=== PATIENT | female | born 1960 | race Caucasian/White ===

== ENCOUNTER 2020-04-08 09:56 | Emergency (ER) | payer OTHER ==
[~2020-04-08 09:56] MED LIST: CARVEDILOL3.125 MG PO; CLARITIN10 MG PO; COZAAR 25MG TAB25 MG PO; ESOMEPRAZOLE MA40 MG PO; LEVOTHYROXINE88 MCG PO; LIBRAX CAPSULE1 EACH PO; PROBIOTIC1 EACH PO; TRAZODONE 150M150 MG PO
[2020-04-08 11:05] LABS: BASOPHIL 0.3 % (0-2); EOSINOPHIL 0 % (0-5); HCT 40.5 % (37.0-47.0); LYMPHOCYTE 40.7 % (15-48); MCH 32.3 pg (25.0-31.0); MCHC 34.6 g/dL (32.0-36.0); MCV 93.5 fL (78.0-100.0); MONOCYTE 4.5 % (0-12); NEUTROPHIL 54.2 % (41-80); NRBC 0; PLT 178 K/uL (150-400); RBC 4.33 M/uL (4.20-5.40); RDW 11.5 % (11.5-14.0); WBC 7.2 K/uL (4.0-10.5)
[2020-04-08 11:15] LABS: INR 1.01 (0.9-1.2); PROTHROMBIN TIME 12.6 SECONDS (11.4-13.6)
[2020-04-08 11:34] LABS: LACTIC ACID 0.9 mmol/L (0.4-1.9)
[2020-04-08 11:39] LABS: ALBUMIN 2.9 g/dL (3.4-5.0); BILIRUBIN - TOTAL 0.4 mg/dL (0.2-1.0); BUN/CREAT RATIO (CALC) 15.5 RATIO; C-REACTIVE PROTEIN 6.1 mg/dL (<=0.90); CREATININE 1.03 mg/dL (0.51-0.95); GLOBULIN (CALCULATION) 3.3 g/dL; MAGNESIUM 1.7 mg/dL (1.8-2.4); POTASSIUM 3.6 mmol/L (3.5-5.1); TOTAL PROTEIN 6.2 g/dL (6.4-8.2)
[2020-04-08 11:43] LABS: BILIRUBIN NEGATIVE (NEGATIVE); BLOOD 1+ Ery/uL (NEGATIVE); CLARITY CLEAR (CLEAR); COLOR YELLOW (YELLOW); GLUCOSE (U) NORMAL (NORMAL); LEUKOCYTES NEGATIVE Leu/uL (NEGATIVE); NITRITE NEGATIVE (NEGATIVE); PROTEIN NEGATIVE (NEGATIVE); SPECIFIC GRAVITY 1.015 (1.001-1.030); UROBILINOGEN 0.2 mg/dL (0.2-1.0)
[2020-04-08 11:53] LABS: PRO-BNP 30 pg/mL (<125)
[2020-04-08 11:55] LABS: BACTERIA 1+
[2020-04-08] MEDS ORDERED: ZOFRAN4 M1 PO (18:49)
[2020-04-08] MEDS ORDERED: NORCO 5-325 TA1 EACH PO (18:49)
[2020-04-08] MEDS ORDERED: NAPROXEN500 MG PO (18:49)
[2020-04-08] MEDS ORDERED: VENTOLIN HFA18 GM INH (18:49)
== END 2020-04-08 19:10 | disposition home or self-care (01) ==
LOC: FER 09:56
PROVIDERS: Emergency Medicine
DX: U07.1 COVID-19 (principal); I10 Essential (primary) hypertension
CPT/HCPCS: 36415; 36600; 71250; 80053; 81001; 82550; 82728; 82803; 83605; 83615; 83735; 83880; 84145; 84484; 85025; 85610; 86140; 87040; 93005; J1885; J2405; J7030